=== PATIENT | female | born 1985 | race African-American/Black ===

== ENCOUNTER 2017-05-17 18:47 | Emergency (ER) | payer SELFPAY ==
[~2017-05-17] VITALS: Ht 162.6 cm; Wt 64.1 kg
[~2017-05-17 18:47] MED LIST: CLEOCIN300 MG PO; EPIDUO GEL PUMP45 GM TP; IBUPROFEN800 MG PO; MECLIZINE HCL25 MG PO; MEDROL DOSEPAK4 MG PO; PRENATAL TABLE1 EAC3 PO; PRILOSEC40 MG PO; TYLENOL EXTRA500 MG PO; ZANTAC150 MG PO; ZOFRAN4 MG PO
[2017-05-17 19:41] LABS: BASOPHIL COUNT 0.1 K/uL (0-0.1); EOSINOPHIL (%) 1.2 % (0-5); EOSINOPHIL COUNT 0.1 K/uL (0-0.3); HEMATOCRIT 38.9 % (36.0-46.0); IMMATURE GRANULOCYTE (%) 0.1 % (0.0-0.7); INSTRUMENT ABS NEUTROPHIL CT 3.5 K/uL; LYMPHOCYTE COUNT 3.2 K/uL (1.0-2.8); MCH 28.9 PG (29.0-34.0); MCHC 32.1 G/DL (30.0-36.0); MEAN PLAT.VOLUME 10.7 uM^3 (9.5-12.4); MONOCYTE (%) 7.1 % (3-12); MONOCYTE COUNT 0.5 K/uL (0-0.8); NEUTROPHIL (%) 47.2 % (45-76); NEUTROPHIL COUNT 3.5 K/uL (1.8-6.4); PLATELET COUNT 265 K/uL (156-360); RBC DIS.WIDTH-CV 13.4 % (11.8-14.6); RBC DIS.WIDTH-SD 44.4 % (39-53); RED BLOOD COUNT 4.32 M/uL (3.80-5.20); WHITE BLOOD COUNT 7.4 K/uL (4.1-10.2)
[2017-05-17 19:58] LABS: CHLORIDE 106 mEq/L (99-109); POTASSIUM 3.7 mEq/L (3.7-5.4); SODIUM 137 mEq/L (136-147)
[2017-05-17 20:00] LABS: GLUCOSE 94 mg/dL (70-99)
[2017-05-17 20:01] LABS: ANION GAP 7 MEQ/L (2-14)
[2017-05-17 20:03] LABS: TOTAL BILIRUBIN 0.2 mg/dL (0.0-1.0)
[2017-05-17 20:04] LABS: ALKALINE PHOSPHATASE 59 IU/L (3-129); GFR ESTIMATE (CALCULATED) > 59 mL/min/
[2017-05-17 20:05] LABS: UREA NITROGEN (BUN) 10 mg/dL (9-23)
[2017-05-17 20:06] LABS: DIRECT BILIRUBIN 0.1 mg/dL (0.0-0.3)
[2017-05-17 20:13] LABS: QUANTITATIVE HCG < 4.0 MIU/ML
[2017-05-17 20:58] VITALS: BP 102/58
[2017-05-18 10:13] LABS: ANTI-HEPATITIS B CORE (TOTAL) Nonreactive; HBCT INDEX 0.08
[2017-05-18 10:14] LABS: HBSG INDEX 0.21
[2017-05-18 10:15] LABS: AHBS INDEX > 1000.00; HPCA INDEX 0.11
[2017-05-18 10:16] LABS: HIV INDEX 0.24; HIV-1/2 AB/AG COMBO Nonreactive
[2017-05-18 10:29] LABS: HEPATITIS B SURFACE ANTIBODY REACTIVE
== END 2017-05-17 20:59 | disposition home or self-care (01) ==
LOC: EME 18:47
DX: Z77.21 Contact with and (suspected) exposure to potentially hazardous body fluids (principal); Z57.8 Occupational exposure to other risk factors; W46.0XXA Contact with hypodermic needle, initial encounter; Y99.0 Civilian activity done for income or pay; Y92.149 Unspecified place in prison as the place of occurrence of the external cause; K21.9 Gastro-esophageal reflux disease without esophagitis
CPT/HCPCS: 80053; 82248; 84702; 85025; 86703; 86704; 86706; 86803; 87340; 99281; 99284

== ENCOUNTER 2018-02-16 11:04 | Emergency (ER) | payer BC ==
[~2018-02-16] VITALS: Ht 165.1 cm; Wt 62.7 kg
[2018-02-16 12:01] LABS: HEMATOCRIT 37.1 % (36.0-46.0); HEMOGLOBIN 12.2 G/DL (11.9-15.5); MCH 29.1 PG (29.0-34.0); MCHC 32.9 G/DL (30.0-36.0); MCV 88.5 FL (83-99); RBC DIS.WIDTH-CV 13.4 % (11.8-14.6); RBC DIS.WIDTH-SD 43.6 % (39-53); RED BLOOD COUNT 4.19 M/uL (3.80-5.20); WHITE BLOOD COUNT 4.9 K/uL (4.1-10.2)
[2018-02-16 12:05] LABS: ALBUMIN 4.2 g/dL (3.2-4.8); CHLORIDE 107 mEq/L (99-109); POTASSIUM 3.9 mEq/L (3.7-5.4); SODIUM 139 mEq/L (136-147)
[2018-02-16 12:08] LABS: GLUCOSE 87 mg/dL (70-99); TOTAL PROTEIN 7.2 g/dL (6.4-8.3)
[2018-02-16 12:10] LABS: TOTAL BILIRUBIN 0.5 mg/dL (0.0-1.0)
[2018-02-16 12:11] LABS: ALKALINE PHOSPHATASE 57 IU/L (3-129); CREATININE 0.8 mg/dL (0.6-1.3); GFR ESTIMATE (CALCULATED) > 59 mL/min/
[2018-02-16 12:12] LABS: UREA NITROGEN (BUN) 6 mg/dL (9-23)
[2018-02-16 12:13] LABS: AST (GOT) 16 IU/L (2-34)
[2018-02-16 12:14] LABS: ALT (GPT) 15 IU/L (3-49)
[2018-02-16 12:20] LABS: QUANTITATIVE HCG < 4.0 MIU/ML
[2018-02-16 12:39] LABS: APPEARANCE CLEAR ((CLEAR)); BILIRUBIN NEGATIVE; BLOOD MODERATE; COLOR YELLOW ((YELLOW)); GLUCOSE (STRIP) NEGATIVE; KETONES NEGATIVE; LEUKOCYTES NEGATIVE; NITRITE NEGATIVE; PROTEIN (STRIP) 30; UROBILINOGEN 0.2 MG/DL (0.2-1.0)
[2018-02-16 12:42] LABS: BACTERIA NONE SEEN /HPF; EPITHELIAL CELLS RARE /HPF; MUCUS TRACE /LPF; RED BLOOD CELLS 0-5 /HPF (0-5); UCUL ADDED? NO; WHITE BLOOD CELLS 0-5 /HPF (0-5)
[2018-02-16 12:54] LABS: PLAT.SUFFICIENCY ADEQUATE; PLATELET COUNT 245 K/uL (156-360)
[2018-02-16 13:55] VITALS: BP 104/59
== END 2018-02-16 13:55 | disposition home or self-care (01) ==
LOC: EME 11:04
DX: N93.9 Abnormal uterine and vaginal bleeding, unspecified (principal); N83.201 Unspecified ovarian cyst, right side; K21.9 Gastro-esophageal reflux disease without esophagitis
CPT/HCPCS: 76856; 80053; 81003; 84702; 85027; 99281; 99284